=== PATIENT | female | born 1935 | race Caucasian/White ===

== ENCOUNTER 2022-03-06 08:45 | Day surgery (SDC) | payer MEDICARE, BC ==
[~2022-03-06 08:45] MED LIST: Acetaminophen 325 MG Tab PO PRN; Acetaminophen/Codeine 300-30 MG Tab PO PRN; Cataract Ophth Solution EYELF ONE; Moxifloxacin 0.5% Ophth Soln 3 ML Bottle EYELF ONE; Ondansetron 4 MG/2 ML SDV IVPUSH PRN; Phenylephrine 10% Ophth Soln 5 ML Bot EYELF ONE; Povidone-Iodine 5% Sterile Ophth Soln 30 ML Bottle EYELF ONE; Proparacaine 0.5% Ophth Soln 15 ML Bottle EYELF ONE; Sodium Chloride 0.9% 10 ML Syringe FLUSH PRN; Timolol Maleate 0.5% Ophth Soln 5 ML Bottle EYELF ONE; Tropicamide 1% Ophth Soln 15 ML Bottle EYELF ONE
[2022-03-06] MEDS ORDERED: Sodium Chloride 0.9% 10 ML Syringe IV ONE (08:46)
[2022-03-06] MEDS ORDERED: Midazolam 1 MG/ML 2 ML SDV IV ONE (08:46)
[2022-03-06] MEDS ORDERED: Dexamethasone 4 MG/ML SDV IV ONE (08:46)
[2022-03-06] MEDS ORDERED: Lidocaine 1% 30 ML SDV ONE (10:19)
[2022-03-06] MEDS ORDERED: Apraclonidine 0.5% Ophth Soln 5 ML Bot EYELF ONE (10:19)
[2022-03-06] MEDS ORDERED: Povidone-Iodine 5% Sterile Ophth Soln 30 ML Bottle EYELF ONE (10:19)
[2022-03-06] MEDS ORDERED: Tetracaine HCl/PF 0.5% 4 ML Bottle EYELF ONE (10:19)
[2022-03-06] MEDS ORDERED: Balanced Salt Solution Ophth Irrig 500 ML Bottle IOCULAR ONE (10:20)
[2022-03-06] MEDS ORDERED: Diclofenac Sodium 0.1% Ophth Soln 5 ML Bottle EYELF ONE (10:20)
[2022-03-06] MEDS ORDERED: Dexamethasone/Neomycin/Polymyxin B Ophth Oint 3.5 GM Tube EYELF ONE (10:20)
[2022-03-06] MEDS ORDERED: Chondroitin Sulfate/Hyaluronate Sodium Ophth Inj 0.5 ML Syringe IOCULAR ONE (10:21)
[2022-03-06] MEDS ORDERED: Vancomycin 500 MG SDV EYELF ONE (10:21)
[2022-03-06] MEDS ORDERED: Dexamethasone 4 MG/ML SDV ONE (10:23)
[2022-03-06] MEDS ORDERED: Dexamethasone 4 MG/ML SDV IOCULAR ONE (10:24)
== END 2022-03-06 11:31 | disposition home or self-care (01) ==
LOC: DL.SDS 08:45
PROVIDERS: ATTEND Ophthalmology
DX: H25.812 Combined forms of age-related cataract, left eye (principal); L84 Corns and callosities; I10 Essential (primary) hypertension; Z79.899 Other long term (current) drug therapy
CPT/HCPCS: 66984; A9270; J1100; J2250; J3370; J3490; V2632

== ENCOUNTER 2022-03-20 08:54 | Day surgery (SDC) | payer MEDICARE, BC ==
[2022-03-20] MEDS ORDERED: Dexamethasone 4 MG/ML SDV IV ONE (08:55)
[2022-03-20] MEDS ORDERED: Sodium Chloride 0.9% 10 ML Syringe IV ONE (08:55)
[2022-03-20] MEDS ORDERED: Midazolam 1 MG/ML 2 ML SDV IV ONE (08:55)
[2022-03-20] MEDS ORDERED: Ondansetron 4 MG/2 ML SDV IVPUSH PRN (09:00)
[2022-03-20] MEDS ORDERED: Acetaminophen 325 MG Tab PO PRN (09:00)
[2022-03-20] MEDS ORDERED: Acetaminophen/Codeine 300-30 MG Tab PO PRN (09:00)
[2022-03-20] MEDS ORDERED: Povidone-Iodine 5% Sterile Ophth Soln 30 ML Bottle EYERT ONE ×2 (09:00→09:45)
[2022-03-20] MEDS ORDERED: Proparacaine 0.5% Ophth Soln 15 ML Bottle EYERT ONE (09:00)
[2022-03-20] MEDS ORDERED: Moxifloxacin 0.5% Ophth Soln 3 ML Bottle EYERT ONE (09:00)
[2022-03-20] MEDS ORDERED: Sodium Chloride 0.9% 10 ML Syringe FLUSH PRN (09:00)
[2022-03-20] MEDS ORDERED: Timolol Maleate 0.5% Ophth Soln 5 ML Bottle EYERT ONE (09:00)
[2022-03-20] MEDS ORDERED: Tropicamide 1% Ophth Soln 15 ML Bottle EYERT ONE (09:00)
[2022-03-20] MEDS ORDERED: Phenylephrine 10% Ophth Soln 5 ML Bot EYERT ONE (09:00)
[2022-03-20] MEDS ORDERED: Cataract Ophth Solution EYERT ONE (09:00)
[2022-03-20] MEDS ORDERED: Tetracaine HCl/PF 0.5% 4 ML Bottle EYERT ONE (09:45)
[2022-03-20] MEDS ORDERED: Lidocaine 1% 30 ML SDV ONE (09:45)
[2022-03-20] MEDS ORDERED: Dexamethasone/Neomycin/Polymyxin B Ophth Oint 3.5 GM Tube EYERT ONE (09:46)
[2022-03-20] MEDS ORDERED: Diclofenac Sodium 0.1% Ophth Soln 5 ML Bottle EYERT ONE (09:46)
[2022-03-20] MEDS ORDERED: Apraclonidine 0.5% Ophth Soln 5 ML Bot EYERT ONE (09:46)
[2022-03-20] MEDS ORDERED: Balanced Salt Solution Ophth Irrig 500 ML Bottle IOCULAR ONE (09:46)
[2022-03-20] MEDS ORDERED: Vancomycin 500 MG SDV EYERT ONE (09:46)
[2022-03-20] MEDS ORDERED: Chondroitin Sulfate/Hyaluronate Sodium Ophth Inj 0.5 ML Syringe IOCULAR ONE (09:47)
== END 2022-03-20 10:57 | disposition home or self-care (01) ==
LOC: DL.SDS 08:54
PROVIDERS: ATTEND Ophthalmology
DX: H25.811 Combined forms of age-related cataract, right eye (principal); I10 Essential (primary) hypertension; L84 Corns and callosities; Z79.899 Other long term (current) drug therapy
CPT/HCPCS: 00142; A9270-GY; J1100; J2250; J3370; J3490; V2632